=== PATIENT | female | born 1965 | race Caucasian/White ===

== ENCOUNTER 2016-09-10 15:25 | Inpatient (IN) | payer BC ==
[~2016-09-10] VITALS: Ht 177.8 cm; Wt 59.0 kg
[2016-09-24] MEDS ORDERED: MELO-1 PO (10:08)
[2016-09-24] MEDS ORDERED: ACET-822 PO (10:08)
[2016-09-24] MEDS ORDERED: ATOR1TAB18 PO (10:08)
[2016-09-24] MEDS ORDERED: ESSE250T PO (10:08)
[2016-09-24] MEDS ORDERED: EZET1TAB8 PO (10:08)
[2016-09-24] MEDS ORDERED: TRAM50TA PO (10:08)
[2016-09-24] MEDS ORDERED: TRIA37.5 PO (10:08)
[2016-09-24] MEDS ORDERED: CALCCHW18 CHEW (10:08)
[2016-09-24] MEDS ORDERED: CITA10TA4 PO (10:08)
[2016-10-04] MEDS ORDERED: METOPROLOL TARTRATE 25 MG TAB PO PRN (05:45)
[2016-10-04] MEDS ORDERED: CHLORHEXIDINE GLUCONATE 2 % 1 PACK (2 CLOTHS) TOPICAL PRN (05:45)
[2016-10-04] MEDS ORDERED: POVIDONE IODINE 5% (ANTISEPSIS KIT) 4 APPLICATIONS EACH NARE PRN (05:45)
[2016-10-04] MEDS ORDERED: CHLORHEXIDINE GLUCONATE 4% SOLN 120 ML BTL TOPICAL SCH (05:45)
[2016-10-04] MEDS ORDERED: LACTATED RINGER'S 1000 ML IV PRN (05:45)
[2016-10-04] MEDS ORDERED: SODIUM CHLORID 0.9% 500 ML IV PRN (05:45)
[2016-10-04] MEDS ORDERED: INSULIN HUMAN REGULAR 1,000 UNITS/10 ML VIAL SQ PRN (05:45)
[2016-10-04 05:52] VITALS: BP 135/80; PULSE 72; RESP 16; TEMP 97.9; O2SAT 100
[2016-10-04] MEDS ORDERED: TRANEXAMIC ACID INJ 590 MG in SODIUM CHLORIDE 0.9% INJ 100 ML IV SCH ×4 (06:00)
[2016-10-04] MEDS ORDERED: EXPAREL PERI-ARTICULAR INJECTION (TOTAL VOL. 60 ML) P-ARTICULR SCH ×2 (06:00)
[2016-10-04] MEDS ORDERED: GENTAMICIN SULFATE 80 MG/2 ML VIAL ONE (06:08)
[2016-10-04] MEDS ORDERED: FAMOTIDINE 20 MG/2 ML VIAL ONE (06:38)
[2016-10-04] MEDS ORDERED: MIDAZOLAM HCL 2 MG/2 ML VIAL ONE (06:38)
[2016-10-04] MEDS ORDERED: DEXAMETHASONE SOD PHOS 4 MG/ML VIAL ONE (06:38)
[2016-10-04] MEDS ORDERED: ACETAMINOPHEN 1000 MG/100 ML VIAL IV ONE (06:38)
[2016-10-04] MEDS ORDERED: ceFAZolin 2 GM PREMIX 50 ML ONE (06:46)
[2016-10-04] MEDS ORDERED: MAGNESIUM HYDROXIDE SUSP 30 ML CUP PO PRN (07:15)
[2016-10-04] MEDS ORDERED: ACETAMINOPHEN/HYDROcodone 325 MG/7.5 MG TAB PO PRN (07:15)
[2016-10-04] MEDS ORDERED: BISACODYL 10 MG SUPP RECTAL PRN (07:15)
[2016-10-04] MEDS ORDERED: SODIUM CHLORIDE 0.9% FLUSH 5 ML FLUSH IVF PRN (07:15)
[2016-10-04] MEDS ORDERED: TRANEXAMIC ACID INJ 0 MG in SODIUM CHLORIDE 0.9% INJ 100 ML IV SCH (07:15)
[2016-10-04] MEDS ORDERED: ZOLPIDEM TARTRATE 5 MG TAB PO PRN (07:15)
[2016-10-04] MEDS ORDERED: Post-op Orders (for Pharmacy) MISC XX ONE (07:15)
[2016-10-04] MEDS ORDERED: ONDANSETRON HCL 4 MG/2 ML VIAL IVP PRN (07:15)
[2016-10-04] MEDS ORDERED: MORPHINE SULFATE 4 MG/ML INJ IV PUSH PRN (08:00)
[2016-10-04] MEDS ORDERED: PILL SPLITTER OTHER PRN (09:00)
[2016-10-04] MEDS ORDERED: EZETIMIBE 10 MG TAB PO SCH (09:00)
[2016-10-04] MEDS ORDERED: CHOLECALCIFEROL CHEW SCH (09:00)
[2016-10-04] MEDS ORDERED: TRIAMTERENE/HCTZ 37.5 MG/25 MG TAB PO SCH (09:00)
[2016-10-04] MEDS ORDERED: CITALOPRAM HYDROBROMIDE 20 MG TAB PO SCH (09:00)
[2016-10-04] MEDS ORDERED: CALCIUM PHOSPHATE CHEW SCH (09:00)
[2016-10-04] MEDS ORDERED: MAGNESIUM 500 MG PO SCH (09:00)
[2016-10-04] MEDS ORDERED: DO NOT ADM ANY ANTICOAGULANT DRUGS PRN (09:43)
--- NOTE | 2016-10-04 10:33 | RADRPT ---
EXAM DATE/TIME: 10/04/2016 10:03 [place] COMPARISON: No previous studies available for comparison. INDICATIONS : Post op left total hip. MEDICAL HISTORY : None. SURGICAL HISTORY : Total hip left ENCOUNTER: Initial ACUITY: 1 day PAIN SCORE: 0/10 LOCATION: Left hip FINDINGS: Total hip arthroplasty is in place. The femoral and acetabular components appear intact. There are no signs of loosening or fracture. CONCLUSION: Intact total hip prosthesis for natasha. Trisha Montoya MD on October 04, 2016 at 10:30 Board Certified Radiologist. This report was verified electronically.
[2016-10-04] MEDS: LACTATED RINGER'S 1000 ML INJ 1,000 ML IV SCH (10:45)
[2016-10-04] MEDS ORDERED: *morphine SULFATE 8 MG/ML PERIprocedure ONLY ONE (10:47)
[2016-10-04] MEDS: KETOROLAC TROMETHAMINE 30 MG/ML (IVP) VIAL IVP SCH ×3 (10:52→21:18)
[2016-10-04] MEDS ORDERED: ONDANSETRON HCL 4 MG/2 ML VIAL IV PUSH ONE (12:00)
[2016-10-04] MEDS ORDERED: PROPOFOL 200 MG/20 ML AMP IV ONE (12:00)
[2016-10-04] MEDS ORDERED: LACTATED RINGER'S 1000 ML INJ 1,000 ML IV ONE (12:00)
[2016-10-04] MEDS ORDERED: ePHEDrine/NS 25 MG/5 ML SYR IV ONE (12:00)
[2016-10-04 13:00] VITALS: BP 89/61; PULSE 90; RESP 18; TEMP 96.8; O2SAT 98
--- NOTE | 2016-10-04 14:18 | PD.CONS ---
HPI Service [facility] Consult Requested By Dr. IRAM Lemus Reason for Consult Medical management Primary Care Physician Fiordaliza Sheikh Diagnoses: History of Present Illness This a pleasant 51-year-old white female with significant past medical history hypertension, hyperlipidemia, osteoarthritis. Patient indicates that she's had severe osteoarthritis of the left hip for a couple years, she has been managed as outpatient with steroid injections. Patient was admitted for elective surgery, she underwent a left total hip arthroplasty. Patient is now evaluated postop. She was noted with low blood pressure, 90/50s, HR 90s. Denies any dizziness, no lightheadedness, no chest pain, no shortness of breath. States that she takes triamterene HCTZ but did not take this morning at home. Denies any nausea, no vomiting. She's getting ready to eat her lunch. Hospitalist services are requested for medical management Review of Systems Constitutional: DENIES: Diaphoretic episodes, Fatigue, Fever, Weight gain, Weight loss, Chills, Dizziness, Change in appetite, Night Sweats Endocrine: DENIES: Abnorml menstrual pattern, Heat/cold intolerance, Polydipsia , Polyuria, Polyphagia Eyes: DENIES: Blurred vision, Diplopia, Eye inflammation, Eye pain, Vision loss , Photosensitivity, Double Vision Ears, nose, mouth, throat: DENIES: Tinnitus, Hearing loss, Vertigo, Nasal discharge, Oral lesions, Throat pain, Hoarseness, Ear Pain, Running Nose, Epistaxis, Sinus Pain, Toothache, Odynophagia Respiratory: DENIES: Apneas, Cough, Snoring, Wheezing, Hemoptysis, Sputum production, Shortness of breath Cardiovascular: DENIES: Chest pain, Palpitations, Syncope, Dyspnea on Exertion , PND, Lower Extremity Edema, Orthopnea, Claudication Gastrointestinal: DENIES: Abdominal pain, Black stools, Bloody stools, Constipation, Diarrhea, Nausea, Vomiting, Difficulty Swallowing, Anorexia Genitourinary: DENIES: Abnormal vaginal bleeding, Dysmenorrhea, Dyspareunia, Sexual dysfunction, Urinary frequency, Urinary incontinence, Urgency, Hematuria , Dysuria, Nocturia, Vaginal discharge Musculoskeletal: COMPLAINS OF: Joint pain, DENIES: Muscle aches, Stiffness, Joint Swelling, Back pain, Neck pain Integumentary: DENIES: Abnormal pigmentation, Pruritus, Rash, Nail changes, Breast masses, Breast skin changes, Nipple discharge Hematologic/lymphatic: DENIES: Bruising, Lymphadenopathy Immunologic/allergic: DENIES: Eczema, Urticaria Neurologic: DENIES: Abnormal gait, Headache, Localized weakness, Paresthesias, Seizures, Speech Problems, Tremor, Poor Balance Psychiatric: DENIES: Anxiety, Confusion, Mood changes, Depression, Hallucinations, Agitation, Suicidal Ideation, Homicidal Ideation, Delusions Past Family Social History Past Medical History Hypertension Hyperlipidemia Osteoarthritis Cataracts Depression Past Surgical History Cataract surgery Colonoscopy Reported Medications Reported Meds & Active Scripts Active Reported Tylenol Extra Strength (Acetaminophen) 500 Mg Tablet 1 Tab PO QID PRN Tramadol (Tramadol HCl) 50 Mg Tab 25-50 Mg PO Q8H PRN Caltrate Gummy Bites (Calcium Phosphate-Cholecalciferol) 250-400 Mg-Unit Chew 2 Tab CHEW BID Magnesium 250 Mg Tab 500 Mg PO DAILY Triamterene-Hydrochlorothiazide 37.5-25 Mg Tab 1 Tab PO DAILY Citalopram (Citalopram Hydrobromide) 10 Mg Tab 10 Mg PO DAILY Ezetimibe 10 Mg Tab 10 Mg PO DAILY Atorvastatin (Atorvastatin Calcium) 80 Mg Tab 80 Mg PO HS Meloxicam 15 Mg Tab 15 Mg PO DAILY Allergies: Coded Allergies: Penicillin (Verified Allergy, Unknown, 10/04/16) Active Ordered Medications Inpatient Medications Acetaminophen/ Hydrocodone Bitart ([place] 7.5-325 Mg) 2 tab Q4H PRN PO PAIN SCALE 5 TO 10; Start 10/04/16 at 07:15 Aspirin (Ecotrin Ec) 81 mg BID PO ; Start 10/04/16 at 09:00 Atorvastatin Calcium (Lipitor) 80 mg HS PO ; Start 10/04/16 at 21:00 Bisacodyl (Dulcolax Supp) 10 mg DAILY PRN RECTAL CONSTIPATION; Start 10/04/16 at 07:15 Bupivacaine Liposome 20 ml/ Sodium Chloride 60 ml @ 120 mls/hr ONCE P-ARTICULR Last administered on 10/04/16 07:33; Start 10/04/16 at 06:00; Stop 10/04/16 at 21:00 Cefazolin Sodium/ Sodium Chloride (Ancef Inj/NS Inj) 100 ml @ 200 mls/hr Q6H IV Last administered on 10/04/16 12:00; Start 10/04/16 at 12:00; Stop 10/05/16 at 00:29 Chlorhexidine Gluconate (Chlorhexidine 2% Cloth) 3 pack TIP CEMENTER PRN TOPICAL SEE LABEL COMMENTS Last administered on 10/04/16 05:30; Start 10/04/16 at 05:45 ; Stop 10/07/16 at 05:44 Chlorhexidine Gluconate 1 applic 1 applic ONCE TOPICAL ; Start 10/04/16 at 05:45 ; Stop 10/07/16 at 05:44 Citalopram Hydrobromide (CeleXA) 10 mg DAILY PO ; Start 10/04/16 at 09:00 Docusate Sodium (Colace) 100 mg BID PO ; Start 10/05/16 at 21:00 EZETIMIBE (Zetia) 10 mg DAILY PO ; Start 10/04/16 at 09:00 Insulin Human Regular (NovoLIN R INJ) See Protocol Table ... TIP CEMENTER PRN SQ SEE PROTOCOL TABLE; Start 10/04/16 at 05:45; Stop 10/07/16 at 05:44 IV Flush (NS Flush) 2 ml UNSCH PRN IVF FLUSH AFTER USING IV ACCESS; Start 10/04 at 07:15 IV Flush 2 ml 2 ml BID IVF ; Start 10/04/16 at 09:00 Ketorolac Tromethamine (Toradol Inj) 15 mg Q6H IVP Last administered on 10:52; Start 10/04/16 at 10:00; Stop 10/06/16 at 04:01 Lactated Ringer's (Lr 1000 ml Inj) 1,000 ml @ 80 mls/hr [id number] IV Last administered on 10/04/16 10:45; Start 10/04/16 at 08:00 Magnesium Hydroxide (Milk Of Magnesia Liq) 30 ml DAILY PRN PO CONSTIPATION; Start 10/04/16 at 07:15 Metoprolol Tartrate (Lopressor) 25 mg TIP CEMENTER PRN PO SEE LABEL COMMENTS; Start 10/04/16 at 05:45; Stop 10/07/16 at 05:44 Miscellaneous (Pill Splitter) 1 ea UNSCH PRN OTHER SEE LABEL COMMENTS; Start at 09:00 Miscellaneous Information ALL NURSING DEPARTME... UNSCH PRN .XX SEE LABEL COMMENTS; Start 10/04/16 at 09:43; Stop 10/05/16 at 09:42 Miscellaneous Information (Post-op Orders (for Pharmacy)) STAT ONCE XX ; Start 10/04/16 at 07:15; Stop 10/04/16 at 09:28; Status DC Morphine Sulfate (Morphine Inj) 4 mg Q3H PRN IV PUSH BREAKTHROUGH PAIN; Start 10/04/16 at 08:00 Ondansetron HCl (Zofran Inj) 4 mg Q6H PRN IVP NAUSEA OR VOMITING; Start at 07:15 Povidone Iodine (Betadine 5% Antisepsis Kit) 1 applic TIP CEMENTER PRN EACH NARE SEE LABEL COMMENTS Last administered on 10/04/16 05:59; Start 10/04/16 at 05:45 ; Stop 10/07/16 at 05:44 Sodium Chloride (NS 500 ml Inj) 500 ml @ 30 mls/hr [id number] PRN IV SEE LABEL COMMENTS; Start 10/04/16 at 05:45; Stop 10/07/16 at 05:44 Tranexamic Acid 590 mg/Sodium Chloride 105.9 ml @ 200 mls/hr ONCE IV Last administered on 10/04/16 10:01; Start 10/04/16 at 06:00; Stop 10/04/16 at 21:00 Triamterene/HCTZ (Maxzide 37.5-25 Mg) 1 tab DAILY PO ; Start 10/04/16 at 09:00 Zolpidem Tartrate (Ambien) 5 mg HS PRN PO SLEEP; Start 10/04/16 at 07:15 Family History Mother is alive and well, she is 89 years old, has history of arthritis, hypertension, CVA Father is , hx of coronary artery disease Social History Patient is a nurse, 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 She lives with her . Drinks 2 glasses of wine per week, no smoking, no substance abuse. Physical Exam Vital Signs Vital Signs Date Time Temp Pulse Resp B/P Pulse Ox O2 Delivery O2 Flow Rate FiO2 10/04/16 12:45 85 16 98/57 97 Room Air 10/04/16 12:30 97.8 87 16 99/55 97 Room Air 10/04/16 12:15 86 16 92/57 96 Room Air 10/04/16 12:00 85 16 96/55 95 Room Air 10/04/16 11:52 15 10/04/16 11:45 83 16 92/52 95 Room Air 10/04/16 11:30 82 16 89/50 95 Room Air 10/04/16 11:15 83 16 91/55 94 Room Air 10/04/16 11:00 82 16 93/56 100 Nasal Cannula 2 10/04/16 10:52 15 10/04/16 10:45 79 15 95/56 98 Nasal Cannula 2 10/04/16 10:30 78 15 96/54 97 Nasal Cannula 2 10/04/16 10:15 96.7 75 15 94/52 97 Nasal Cannula 2 10/04/16 10:00 74 15 97/54 96 Nasal Cannula 2 10/04/16 09:45 96.6 81 16 97/59 100 Nasal Cannula 3 10/04/16 09:45 96.6 10/04/16 05:52 97.9 72 16 135/80 100 Physical Exam GENERAL: This is a well-nourished, well-developed patient, in no apparent distress. SKIN: No rashes, ecchymoses or lesions. Cool and dry. HEAD: Atraumatic. Normocephalic. No temporal or scalp tenderness. EYES: Pupils equal round and reactive. Extraocular motions intact. No scleral icterus. No injection or drainage. ENT: Nose without bleeding, purulent drainage or septal hematoma. Throat without erythema, tonsillar hypertrophy or exudate. Uvula midline. Airway patent. NECK: Trachea midline. No JVD or lymphadenopathy. Supple, nontender, no meningeal signs. CARDIOVASCULAR: Regular rate and rhythm without murmurs, gallops, or rubs. RESPIRATORY: Clear to auscultation. Breath sounds equal bilaterally. No wheezes , rales, or rhonchi. GASTROINTESTINAL: Abdomen soft, non-tender, nondistended. No hepato-splenomegaly , or palpable masses. No guarding. MUSCULOSKELETAL: Left hip with dressing dry and intact, intact sensation to left foot. Able to dorsiflex the left foot. Bilateral pedal pulses 2+ bilaterally. No other joint abnormality. NEUROLOGICAL: Awake, alert oriented 3. No focal deficits. Laboratory Laboratory Tests Test 10/04/16 05:53 Blood Type AB NEGATIVE Antibody Screen NEGATIVE Blood Bank Comment Imaging Last Impressions Hip X-Ray 10/04/16 0702 Signed Impressions: Service Date/Time: Tuesday, October 04, 2016 10:03 - CONCLUSION: Intact total hip prosthesis for technique. Trisha Montoya MD A/P Diagnosis: (1) Primary osteoarthritis of left hip (2) Status post total replacement of left hip (3) Hypotension, unspecified (4) Hyperlipidemia Assessment and Plan Thank you for this consultation, we will assist with medical management 51-year-old female with history of osteoarthritis, status post left total hip arthroplasty Continue with postoperative orthopedic care Pain management, patient can have Toradol as needed for pain. Morphine can be resume when systolic blood pressure greater than 110. Bowel regimen Aspirin 81 mg by mouth twice a day and SCDs for DVT prophylaxis per Dr. Lemus's protocol. Hypotension, asymptomatic. Patient with history hypertension Continue with IV fluids We will hold antihypertensive agents at this time Hyperlipidemia Continue home medications CBC and BMP in the morning Continue to monitor her blood pressure Plan of care has been discussed with the patient, attending and registered nurse. Further management of the patient will be dependent on the hospital course This patient was seen by myself and Dr. Whitley, this consultation is written on his behalf Problem Qualifiers (1) Hyperlipidemia: Qualified Code: E78.5 - Hyperlipidemia, unspecified hyperlipidemia type Alda Zheng Oct 04, 2016 14:18
[2016-10-04] MEDS: ACETAMINOPHEN/HYDROcodone 325 MG/7.5 MG TAB PO PRN ×2 (15:41→23:53)
[2016-10-04 16:00] VITALS: BP 97/59; PULSE 92; RESP 18; TEMP 96; O2SAT 100
[2016-10-04 18:44] VITALS: O2SAT 99
[2016-10-04 19:22] VITALS: BP 85/59; PULSE 91; RESP 17; TEMP 97.9; O2SAT 100
[2016-10-04] MEDS ORDERED: ATORVASTATIN 80 MG TAB PO SCH (21:00)
[2016-10-04] MEDS: ASPIRIN EC 81 MG TABEC PO SCH (21:19)
[2016-10-04] MEDS: SODIUM CHLORIDE 0.9% FLUSH 5 ML FLUSH IVF SCH (21:20)
[2016-10-04 23:48] VITALS: BP 95/58; PULSE 86; RESP 18; TEMP 98.7; O2SAT 96
[2016-10-05] MEDS: KETOROLAC TROMETHAMINE 30 MG/ML (IVP) VIAL IVP SCH ×2 (04:23→09:02)
[2016-10-05] MEDS: ACETAMINOPHEN/HYDROcodone 325 MG/7.5 MG TAB PO PRN ×2 (04:24→13:17)
[2016-10-05 04:39] VITALS: BP_SYST 172; BP_SYST 92; BP_DIAS 104; BP_DIAS 55; PULSE 85; PULSE 98; RESP 17; RESP 18; TEMP 96.2; TEMP 99.1; O2SAT 94; O2SAT 96
--- NOTE | 2016-10-05 06:25 | PD.ORT.PN ---
Subjective Post Op Day #: 1 Subjective Remarks She is doing well, with little pain. She walked in the room with a nurse. Distance Walked Did not walk with PT because of hypotension.. Objective Vitals Vital Signs Date Time Temp Pulse Resp B/P Pulse Ox O2 Delivery O2 Flow Rate FiO2 10/04/16 23:48 98.7 86 18 95/58 96 10/04/16 19:22 97.9 91 17 85/59 100 10/04/16 18:44 99 21 10/04/16 16:00 96.0 92 18 97/59 100 10/04/16 13:00 96.8 90 18 89/61 98 10/04/16 12:45 85 16 98/57 97 Room Air 10/04/16 12:30 97.8 87 16 99/55 97 Room Air 10/04/16 12:15 86 16 92/57 96 Room Air 10/04/16 12:00 85 16 96/55 95 Room Air 10/04/16 11:52 15 10/04/16 11:45 83 16 92/52 95 Room Air 10/04/16 11:30 82 16 89/50 95 Room Air 10/04/16 11:15 83 16 91/55 94 Room Air 10/04/16 11:00 82 16 93/56 100 Nasal Cannula 2 10/04/16 10:52 15 10/04/16 10:45 79 15 95/56 98 Nasal Cannula 2 10/04/16 10:30 78 15 96/54 97 Nasal Cannula 2 10/04/16 10:15 96.7 75 15 94/52 97 Nasal Cannula 2 10/04/16 10:00 74 15 97/54 96 Nasal Cannula 2 10/04/16 09:45 96.6 81 16 97/59 100 Nasal Cannula 3 10/04/16 09:45 96.6 I/O 10/04/16 10/04/16 10/04/16 10/05/16 10/05/16 10/05/16 07:00 15:00 23:00 07:00 15:00 23:00 Intake Total 1650 ml 480 ml Output Total 400 ml 1000 ml Balance 1250 ml -520 ml Intake Oral 480 ml IV Total 150 ml Other 1500 ml Output Urine Total 1000 ml Estimated Blood Loss 400 ml # Voids 0 1 # Bowel Movements 0 Imaging Last 24 hours Impressions Hip X-Ray 10/04/16 0702 Signed Impressions: Service Date/Time: Tuesday, October 04, 2016 10:03 - CONCLUSION: Intact total hip prosthesis for technique. Trisha Montoya MD Objective Remarks Resting comfortably, supine in bed. Dressing is dry and intact. Neurovascular status is intact. Assessment & Plan Ortho Post Op Day #: 1 Problem List: (1) Status post total replacement of left hip Plan: Continue postop care and PT. Assessment and Plan Condition: Good. Orthopaedically stable. DVYT prophylaxis: TEDs, ASA, sequentials. Discharge plans: Home with [facility]. Has appointment. Rx: [place] 7.5/325 Edgar Lemus MD ([facility]) Oct 05, 2016 06:25
[2016-10-05] MEDS ORDERED: ASPI-99 PO (06:42)
[2016-10-05] MEDS ORDERED: HYDR-3580 PO (06:42)
--- NOTE | 2016-10-05 07:06 | HHI.FF ---
Face to Face Verification Diagnosis: (1) Status post total replacement of left hip Physical Therapy Gait training Hip: Hip fracture, Protocol: Left, Posterior hip precautions, Progress to weight bearing Canvas Knee Splint: When in bed & 2 pillows btw thighs (for 8 weeks.) Left LE Weight Bearing: WB as tolerated Left LE Range of Motion: Active ROM Nursing Nursing: Dressing changes Dressing Changes: Daily dressing change, Coverderm/Primapore Additional Instructions Remove steristrips on postop day 14. I have seen patient Carole Alberto on 10/05/16. My clinical findings support the need for the requested home health care services because: Ltd mobility - disease progression Limited ability to care for self High risk of falls I certify that my clinical findings support that this patient is homebound because: Post-op weakness Unsteady gait/balance Unsafe to leave home unassisted Edgar Lemus MD ([facility]) Oct 05, 2016 07:06
[2016-10-05 07:57] LABS: HEMATOCRIT 24.4 % (35.0-46.0); REVIEW FLAG FINAL
[2016-10-05 08:00] VITALS: BP 92/55; PULSE 92; RESP 14; TEMP 97; O2SAT 98
[2016-10-05] MEDS: ASPIRIN EC 81 MG TABEC PO SCH (08:55)
[2016-10-05] MEDS: SODIUM CHLORIDE 0.9% FLUSH 5 ML FLUSH IVF SCH (08:56)
[2016-10-05] MEDS: LACTATED RINGER'S 1000 ML INJ 1,000 ML IV SCH (09:00)
[2016-10-05 09:49] VITALS: O2SAT 99
--- NOTE | 2016-10-05 10:28 | MP ---
cc: Edgar BANERJEE M.D. ([facility]) DATE OF SURGERY 10/04/2016 PREOPERATIVE DIAGNOSIS Primary osteoarthritis left hip. POSTOPERATIVE DIAGNOSIS Primary osteoarthritis left hip. OPERATION PERFORMED Left total hip arthroplasty using Ida prosthesis. SURGEON Yuli Banerjee MD OCCUPATIONAL MEDICINE PHYSICIAN Quintin Johnson ANESTHESIA Spinal with supplemental local. INDICATIONS AND FINDINGS This 50-year-old woman has a 20-year history of left hip pain progressively worsening to the point that she has marked limitation of ambulation with tenderness when walking. In spite of tenderness she has groin pain. She has been treated with nonsteroidal anti-inflammatory agents, analgesics, activity modification, intraarticular corticosteroids, ambulatory aids and physical therapy without any benefit. Physical findings showed some limitation of motion with crepitation on motion. X-rays showed loss of articular cartilage to [id number] particularly in the superior aspect with osteophytes, subchondral cysts and eburnation. Operative findings were consistent with the radiographic findings with there being severe osteoarthritis with loss of articular cartilage to [id number], osteophytes, eburnation, subchondral cysts and additional osteocartilaginous loose bodies. PROSTHESIS USED Ahmeek prosthesis with the acetabular component being a tritanium hemispherical cluster cup size 54 with a 32-mm inner diameter 0-degree Trident X3 polyethylene insert. There were two 25-mm screws used. The femoral component was an Accolade II, size 4 x 132-degree neck angle with a Biolox Delta ceramic head size 32 outer diameter with a -4 mm neck length. PROCEDURE The patient was brought to a clean-air operating suite and a spinal anesthetic was administered. She was placed into a lateral [facility] with an axillary roll under the right shoulder and her left hip up. She was then prepped with alcohol, Hibiclens and Chloraprep and draped in the usual manner with the hip draped free. An appropriate time-out procedure was carried out. She received prophylactic antibiotics in the form of Ancef at the appropriate interval as well as tranexamic acid to assist with hemostasis. A lateral superior incision was made starting from the upper third of the greater trochanter and going posterior and superiorly, following the lines of the gluteus violet. The incision was deepened through subcutaneous tissues, down to the gluteus violet which was exposed. Hemostasis was achieved throughout the procedure with electrocautery. The fascia gino was opened for about 1.5 cm at the superior aspect of the greater trochanter and then carried up to the greater trochanter and then opening up and splitting the gluteus violet posteriorly. Retractors were placed under the gluteus violet and the Charnley retractor was inserted with wound towels. With the retractor under the gluteus violet, the piriformis was identified. The interval between the piriformis and the gluteus medius and minimus was developed and retractor placed. The obturator externus and piriformis tendons were released off the posterior aspect of the greater trochanter. Dissection was then carried down to the capsule where a superior capsulotomy was carried out. Dissection was carried out anterior superiorly and down to the area of the greater trochanter in the neck. The capsule was then released off the lower portion of the intertrochanteric line partially, exposing the calcar. The hip was dislocated. The femoral neck was transected at the appropriate level. The femoral head was removed. Retractors were placed about the femoral neck. Soft tissues were cleaned from the saddle region. A box osteotome was used to initiate opening of the canal followed by the use of a canal-finding awl and a curved osteotome. Broaching was then started with the size 0 and went in one size increments up to a size 4. Size 4 gave excellent fit and fill. When this was properly seated, calcar planing was carried out. The hip was then irrigated well. The hip was then repositioned and the acetabulum exposed with retractors. Soft tissues were cleaned from the acetabulum with electrocautery. Reaming was started with a size 45-mm reamer and went in 1-mm increments starting by medialized to the calcar and then going up stepwise to 51 mm. A trial of a 52-mm cup showed that there was substantial uncovered superolateral bone. For this reason reaming was then carried out to size 53. Insertion of a size 54 cup was carried out. When this was seated appropriately, this was checked and appeared to have excellent coverage. The trial prosthesis was removed. Osteophytes were trimmed at the appropriate level. The 54-mm tritanium cup was then impacted into place and seated appropriately. This was done with anatomic and guide methods. With the cup in place fenestration was were made through the cup holes for placement of screws. These fenestration was were then sounded an appropriate size screws inserted. A 32-mm inner diameter, 0-degrees X3 polyethylene liner was impacted into place and seated. The hip was then repositioned. The 132-mm neck was applied to the 32-mm/-4 mm neck length trial. When this was seated in position and reduced, the position was found to be excellent. The stability was excellent. The leg length was appropriate. There was no pistoning. The hip was then dislocated. Local anesthesia was administered in the anterior aspect of the hip prior to placement of the femoral prosthesis. The femoral medullary canal was cleaned and aspirated. The femoral component was then impacted into place and seated appropriately. A trial reduction was carried out again with the same result. Following this the 32-mm outer diameter -4 mm neck length Biolox Delta head was impacted onto the cleaned and dried trunnion. The hip was reduced. The stability was checked and found to be excellent. The leg length was appropriate. There was no pistoning. Wound closure then commenced using 0 Vicryl continuous locked suture to close the upper portion of the capsule. The capsule was then repaired to the posterior aspect of the greater trochanter along with the external rotators including the conjoined tendon, the piriformis and obturator externus. This was done with transosseous sutures of 0 Vicryl and a Krackow technique. After this was closed, the sciatic nerve was checked and found to be unmolested. The fascia gino and gluteus fascia were repaired with 0 Vicryl interrupted [id number] sutures. The subcutaneous tissues were closed with 2-0 Vicryl interrupted simple sutures with buried knots. The skin was closed with continuous subcuticular closure of 4-0 Monocryl. The wound was dressed with Steri-Strips, followed by dry dressing and Medipore compression dressing. The leg was placed into a knee immobilizer. The patient was transferred to the recovery room in satisfactory condition having tolerated the procedure well. COUNTS Correct. SPECIMENS None. ESTIMATED BLOOD LOSS 400 mL. MD CARLOS Montiel/MICHELLE /9:37 AM /10:05 AM
[2016-10-05 12:00] VITALS: BP 102/55; PULSE 82; RESP 17; TEMP 97.4; O2SAT 100
--- NOTE | 2016-10-05 13:37 | HHI.PR ---
Subjective Remarks Patient is feeling better Pain is bearable No other complaint Review of system for 10 point system otherwise remarkable except no bowel movement yet Objective Objective Results - Vital Signs Date Time Temp Pulse Resp B/P Pulse Ox O2 Delivery O2 Flow Rate FiO2 10/05/16 12:00 97.4 82 17 102/55 100 10/05/16 09:49 99 21 10/05/16 08:00 97.0 92 14 92/55 98 10/05/16 04:39 99.1 98 17 92/55 96 10/04/16 23:48 98.7 86 18 95/58 96 10/04/16 19:22 97.9 91 17 85/59 100 10/04/16 18:44 99 21 10/04/16 16:00 96.0 92 18 97/59 100 I/O 10/04/16 10/04/16 10/04/16 10/05/16 10/05/16 10/05/16 06:59 14:59 22:59 06:59 14:59 22:59 Intake Total 1650 ml 480 ml 360 ml Output Total 400 ml 1000 ml Balance 1250 ml -520 ml 360 ml Intake Oral 480 ml 360 ml IV Total 150 ml Other 1500 ml Output Urine Total 1000 ml Estimated Blood Loss 400 ml # Voids 0 1 1 # Bowel Movements 0 0 Result Diagram: 10/05/16 0724 Imaging Last Impressions Hip X-Ray 10/04/16 07 Signed Impressions: Service Date/Time: Tuesday, October 04, 2016 10:03 - CONCLUSION: Intact total hip prosthesis for technique. K. Sumit Montoya MD Other Results Laboratory Tests Test 10/05/16 07:24 Hemoglobin 8.5 Hematocrit 24.4 Physical Exam Physical Exam GENERAL: This is a well-nourished, well-developed patient, in no apparent distress. SKIN: Cool and dry. HEAD: Atraumatic. Normocephalic. ENT: Airway patent. NECK: Trachea midline. CARDIOVASCULAR: Regular rate and rhythm without murmurs, gallops, or rubs. RESPIRATORY: Clear to auscultation. Breath sounds equal bilaterally. No wheezes , rales, or rhonchi. GASTROINTESTINAL: Abdomen soft, non-tender, nondistended. No hepato-splenomegaly , or palpable masses. No guarding. MUSCULOSKELETAL: patient is walking with a walker no edema Bilateral pedal pulses 2+ bilaterally. NEUROLOGICAL: Awake, alert oriented 3. No focal deficits. A/P Assessment and Plan (1) Primary osteoarthritis of left hip (2) Status post total replacement of left hip (3) Hypotension, unspecified (4) Hyperlipidemia Plan 51-year-old female with history of osteoarthritis, status post left total hip arthroplasty Continue with postoperative orthopedic care Pain management, patient can have Toradol as needed for pain. Morphine can be resume when systolic blood pressure greater than 110. Bowel regimen Aspirin 81 mg by mouth twice a day and SCDs for DVT prophylaxis per Dr. Lemus's protocol. blood pressure stable. on IV fluids We will hold antihypertensive agents at this time. Advise to hold antihypertensive at home until blood pressure goes up high parameters given to the patient. She understood very well Hyperlipidemia Continue home medications labs reviewed Continue to monitor her blood pressureat home patient understood No overall a stable Marcie Whitley MD Oct 05, 2016 13:37
[2016-10-05] MEDS ORDERED: DOCUSATE SODIUM 100 MG CAP PO SCH (21:00)
== END 2016-10-05 15:22 | disposition home health service (06) | DRG 470 ==
LOC: HSDI 10-04 05:16 → N06B 10-04 13:02
PROVIDERS: ADMIT Orthopaedic Surgery; ATTEND Orthopaedic Surgery
PROC: 0SRB04A Replacement of Left Hip Joint with Ceramic on Polyethylene Synthetic Substitute, Uncemented, Open Approach (ICD-10-PCS; principal; 2016-10-04 06:53)
DX: M16.12 Unilateral primary osteoarthritis, left hip (principal); I95.9 Hypotension, unspecified; E78.5 Hyperlipidemia, unspecified; I10 Essential (primary) hypertension; F32.9 Major depressive disorder, single episode, unspecified
CPT/HCPCS: 73502; 85014; 85018; 86850; 86900; 86901; 94150; C1776; C9290; J0131; J0690; J1100; J1580; J1885; J2250; J2270; J2405; J3010; J7120; L1830

== ENCOUNTER → 2016-09-24 | Outpatient (CLI) | payer BC ==
[~2016-09-24] MED LIST: ACET-822 PO; ASPI-99 PO; ATOR1TAB18 PO; CALCCHW18 CHEW; CITA10TA4 PO; ESSE250T PO; EZET1TAB8 PO; FOSA70TA PO; HYDR-3580 PO; LIPI80TA16 PO; MAGN500T4 PO; MELO-1 PO; MOBI15TA PO; TRAM50TA PO; TRIA37.5 PO; ULTR50TA PO; ZETI10TA5 PO
== END ==
LOC: CPRE 08:58
PROVIDERS: ATTEND Orthopaedic Surgery
DX: M16.12 Unilateral primary osteoarthritis, left hip (principal); I10 Essential (primary) hypertension; M79.609 Pain in unspecified limb